=== PATIENT | female | born 1995 | race Caucasian/White ===

== ENCOUNTER 2018-01-24 23:34 | Emergency (ER) | payer OTHER ==
[~2018-01-24] VITALS: Ht 157.5 cm; Wt 95.3 kg
[~2018-01-24 23:34] MED LIST: CARAFATE 1 GM TA1 GM PO; IBUPROFEN 600600 M1; PREVACID15 MG PO; TRAMADOL 50 MG50 MG
[2018-01-24 23:59] LABS: URINE BILIRUBIN NEGATIVE (Negative); URINE BLOOD NEGATIVE (Negative); URINE CLARITY CLEAR; URINE COLOR YELLOW; URINE GLUCOSE-RANDOM NEGATIVE (Negative); URINE KETONES NEGATIVE (Negative); URINE LEUKOCYTES-REFLEX NEGATIVE (Negative); URINE NITRITE-REFLEX NEGATIVE (Negative); URINE PROTEIN NEGATIVE (Negative); URINE UROBILINOGEN 0.2 E.U./dl (0.2-1.0)
[2018-01-25] MEDS ORDERED: LIORESAL 10 MG10 MG (00:02)
[2018-01-25] MEDS ORDERED: HYDROCODON-ACE1 EAC8 PO (01:40)
[2018-01-25 01:44] VITALS: BP 141/65
== END 2018-01-25 01:44 | disposition home or self-care (01) ==
LOC: M.ERS 23:34
PROVIDERS: Emergency Medicine
DX: R10.2 Pelvic and perineal pain (principal); Z88.6 Allergy status to analgesic agent

== ENCOUNTER 2018-02-18 10:49 | Emergency (ER) | payer OTHER ==
[~2018-02-18] VITALS: Ht 160 cm; Wt 90.7 kg
[~2018-02-18 10:49] MED LIST changes: +HYDROCODON-ACE1 EAC8 PO; +LIORESAL 10 MG10 MG
[2018-02-18 11:18] LABS: ABSOLUTE EOSINOPHILS 0.2 thou/uL (0.0-0.7); ABSOLUTE LYMPHOCYTES 2.6 thou/uL (0.8-5.3); ABSOLUTE MONOCYTES 0.8 thou/uL (0.0-1.2); ABSOLUTE NEUTROPHILS 4.5 thou/uL (1.6-8.1); BASOPHILS 0.5 %; EOSINOPHILS 2.3 %; HEMATOCRIT 40.6 % (37.0-47.0); HEMOGLOBIN 14.1 gm/dL (12.0-15.0); LYMPHOCYTES 32.5 %; MCH 29.5 pg (26.0-34.0); MCHC 34.7 g/dL (28.0-37.0); MCV 85.2 fL (80.0-100.0); MONOCYTES 9.5 %; MPV 9.9 fl. (7.2-11.1); NUCLEATED RBCS 0 /100WBC; PLATELET COUNT* 321 thou/uL (150-400); POLYS 55.2 %; RBC 4.76 mil/uL (4.20-5.00); RDW-CV 12.6 % (10.5-14.5); WBC 8.1 thou/uL (4.0-11.0)
[2018-02-18 11:20] LABS: URINE BILIRUBIN NEGATIVE (Negative); URINE BLOOD NEGATIVE (Negative); URINE CLARITY CLEAR; URINE COLOR YELLOW; URINE GLUCOSE-RANDOM NEGATIVE (Negative); URINE KETONES NEGATIVE (Negative); URINE LEUKOCYTES NEGATIVE (Negative); URINE NITRITE NEGATIVE (Negative); URINE PROTEIN NEGATIVE (Negative); URINE SPECIFIC GRAVITY 1.025 (1.005-1.030); URINE UROBILINOGEN 0.2 E.U./dl (0.2-1.0)
[2018-02-18 11:26] LABS: CALCIUM 8.8 mg/dL (8.5-10.1); CREATININE 0.7 mg/dL (0.6-1.3); POTASSIUM 3.7 mmol/L (3.5-5.1)
[2018-02-18 11:30] LABS: ALBUMIN 3.9 g/dL (3.4-5.0); TOTAL BILIRUBIN 0.4 mg/dL (<0.1-1.0); TOTAL PROTEIN 7.3 g/dL (6.4-8.2)
[2018-02-18] MEDS ORDERED: NORCO 5-325 TA1 EACH PO (11:39)
[2018-02-18] MEDS ORDERED: NAPROSYN500 MG PO (11:39)
[2018-02-18 15:43] VITALS: BP 124/76
== END 2018-02-18 15:44 | disposition home or self-care (01) ==
LOC: M.ERS 10:49
PROVIDERS: Nurse Practitioner Family
DX: N83.292 Other ovarian cyst, left side (principal); Z88.6 Allergy status to analgesic agent

== ENCOUNTER 2019-02-11 14:59 | Emergency (ER) | payer BC ==
[~2019-02-11] VITALS: Ht 157.5 cm; Wt 90.7 kg
[~2019-02-11 14:59] MED LIST changes: +NAPROSYN500 MG PO; +NORCO 5-325 TA1 EACH PO
[2019-02-11 15:39] LABS: ABSOLUTE EOSINOPHILS 0.2 thou/uL (0.0-0.7); ABSOLUTE LYMPHOCYTES 2.8 thou/uL (0.8-5.3); ABSOLUTE MONOCYTES 0.6 thou/uL (0.0-1.2); ABSOLUTE NEUTROPHILS 3.5 thou/uL (1.6-8.1); BASOPHILS 0.4 %; EOSINOPHILS 2.4 %; HEMOGLOBIN 14.7 gm/dL (12.0-15.0); LYMPHOCYTES 39.2 %; MCH 29.8 pg (26.0-34.0); MCV 85.1 fL (80.0-100.0); MPV 9.1 fl. (7.2-11.1); NUCLEATED RBCS 0 /100WBC; PLATELET COUNT* 274 thou/uL (150-400); RBC 4.93 mil/uL (4.20-5.00); RDW-CV 12.5 % (10.5-14.5); WBC 7.1 thou/uL (4.0-11.0)
[2019-02-11 15:59] LABS: ALBUMIN 3.9 g/dL (3.4-5.0); ALKALINE PHOSPHATASE 54 U/L (46-116); ANION GAP 9 mmol/L (7-16); BUN 21 mg/dL (7-18); CALCIUM 8.9 mg/dL (8.5-10.1); CHLORIDE 106 mmol/L (98-107); CO2 26 mmol/L (21-32); CREATININE 0.8 mg/dL (0.6-1.3); GLUCOSE 92 mg/dL (70-99); POTASSIUM 3.9 mmol/L (3.5-5.1); SGOT 17 U/L (15-37); SGPT 29 U/L (30-65); SODIUM 141 mmol/L (136-145); TOTAL BILIRUBIN 0.3 mg/dL (<0.1-1.0); TOTAL PROTEIN 7.1 g/dL (6.4-8.2); TROPONIN-I LEVEL <0.06 ng/mL (<0.06)
[2019-02-11 16:05] LABS: URINE BILIRUBIN NEGATIVE (Negative); URINE BLOOD NEGATIVE (Negative); URINE CLARITY CLEAR; URINE COLOR YELLOW; URINE GLUCOSE-RANDOM NEGATIVE (Negative); URINE KETONES NEGATIVE (Negative); URINE LEUKOCYTES-REFLEX NEGATIVE (Negative); URINE NITRITE-REFLEX NEGATIVE (Negative); URINE PROTEIN NEGATIVE (Negative); URINE UROBILINOGEN 0.2 E.U./dl (0.2-1.0)
[2019-02-11 16:16] LABS: AMP/METHAMP Negative (Negative); BARBITURATES Negative (Negative); BENZODIAZEPINES Negative (Negative); COCAINE Negative (Negative); METHADONE Negative (Negative); OPIATES Negative (Negative); PCP Negative (Negative); THC Negative (Negative)
[2019-02-11] MEDS ORDERED: ZANAFLEX4 MG PO (16:21)
[2019-02-11] MEDS ORDERED: NABUMETONE 750750 M1 PO (16:21)
[2019-02-11 16:32] VITALS: BP 133/68
--- NOTE | 2019-02-12 13:38 | EKG ---
[place] [address] ELECTROCARDIOGRAM REPORT Name: DILIP LOWERY Room: [facility]#: [id number] Admission: 02/11/19 Attend Phys: Discharge: 02/11/19 Date of : [birth year] Report #: [id number] THIS REPORT FOR: //name// [facility] ED Test Date: 2019-02-11 Test Time: 15:07:35 Pat Name: DILIP LOWERY Department: Room: Gender: F Systems Test Technician: COLE EMT STUDENT : 1995 Requested By: Aspen Espinal Order Number: [id number] MD: Vincenzo Nguyen Measurements Intervals [place] Rate: 84 P: 47 IA: 131 QRS: 91 QRSD: 92 T: -15 QT: 368 QTc: 436 Interpretive Statements Sinus rhythm Borderline right axis deviation Borderline T abnormalities, inferior leads Compared to ECG 08/15/2016 02:22:12 T-wave abnormality now present Electronically Signed On 02-12-2019 13:37:58 CDT by Vincenzo Nguyen [email or web address] <ELECTRONICALLY SIGNED> By: Vincenzo Nguyen MD, [facility] 02/12/19 1337 [id number] Vincenzo Nguyen MD, [facility] /EPI
== END 2019-02-11 16:33 | disposition home or self-care (01) ==
LOC: M.ERS 14:59
PROVIDERS: Nurse Practitioner Family
DX: R07.89 Other chest pain (principal); Z88.6 Allergy status to analgesic agent

== ENCOUNTER 2020-02-28 00:06 | Emergency (ER) | payer OTHER ==
[~2020-02-28] VITALS: Ht 157.5 cm; Wt 86.2 kg
[~2020-02-28 00:06] MED LIST changes: +NABUMETONE 750750 M1 PO; +ZANAFLEX4 MG PO
[2020-02-28 00:30] VITALS: BP 109/85
== END 2020-02-28 00:30 | disposition home or self-care (01) ==
LOC: M.ERS 00:06
DX: S90.02XA Contusion of left ankle, initial encounter (principal); X50.9XXA Other and unspecified overexertion or strenuous movements or postures, initial encounter; Y93.89 Activity, other specified; Y92.89 Other specified places as the place of occurrence of the external cause; Y99.8 Other external cause status

== ENCOUNTER 2021-08-03 19:12 | Emergency (ER) | payer OTHER ==
[~2021-08-03] VITALS: Ht 160 cm; Wt 104.3 kg
[2021-08-03] MEDS ORDERED: LEXAPRO 10 MG T10 M2 PO (19:30)
[2021-08-03] MEDS ORDERED: PHENERGAN 25 MG25 M1 PO (22:04)
[2021-08-03 22:20] VITALS: BP 122/80
== END 2021-08-03 22:24 | disposition home or self-care (01) ==
LOC: M.ERS 19:12
DX: G43.909 Migraine, unspecified, not intractable, without status migrainosus (principal); R11.2 Nausea with vomiting, unspecified; Z87.42 Personal history of other diseases of the female genital tract; Z79.899 Other long term (current) drug therapy; Z88.6 Allergy status to analgesic agent